=== PATIENT | female | born 1970 | race Caucasian/White ===

== ENCOUNTER 2022-06-25 12:58 | Outpatient (CLI) | payer OTHER | END 2022-06-25 12:59 | disposition home or self-care (01) | LOC: BICMAMMO 12:58 | PROVIDERS: ATTEND Nurse Practitioner Family | DX: Z12.31 Encounter for screening mammogram for malignant neoplasm of breast (principal); Z98.890 Other specified postprocedural states; Z80.3 Family history of malignant neoplasm of breast | CPT/HCPCS: 77063; 77067 ==